=== PATIENT | female | born 1945 | race Caucasian/White ===

== ENCOUNTER 2017-10-17 00:31 | Observation (INO) | payer MEDICARE, BC ==
[~2017-10-17] VITALS: Ht 149.9 cm; Wt 47.1 kg
[2017-10-17] VITALS (7 sets, daily range): BP systolic 103–130; BP diastolic 61–78
[~2017-10-17 00:31] MED LIST: ACETAMINOPHEN-1 EAC1 PO; ASPIR 8181 MG PO; BIOTIN10000 MC1 PO; CALCIUM 600 +1 EAC1 PO; CVS COD LIVER473 ML PO; ESTRIOL100 GM MC; HYDROCODONE-AP1 EAC6 PO; IRON325 PO; LIDODERM 5%1 PATC1 TRANSDERM; MAGNESIUM250 M1 PO; MAXIMUM DAILY1 EACH PO; MEDROLDOSEPACK PO; NAPROSYN500 MG PO; NATURE-THRO113.75 MG PO; NOHOMEMEDICATIONS; OMEGA-31000 M1 PO; VICODIN ES TAB1 EACH; VITAMIN B-12500 MCG PO; ZANAFLEX4 MG PO
[2017-10-17 00:56] LABS: URINE BILIRUBIN NEGATIVE (Negative); URINE BLOOD TRACE (Negative); URINE CLARITY CLEAR; URINE COLOR STRAW; URINE GLUCOSE-RANDOM NEGATIVE (Negative); URINE KETONES NEGATIVE (Negative); URINE LEUKOCYTES-REFLEX NEGATIVE (Negative); URINE NITRITE-REFLEX NEGATIVE (Negative); URINE PROTEIN 1+ (Negative); URINE SPECIFIC GRAVITY 1.015 (1.005-1.030); URINE UROBILINOGEN 0.2 E.U./dl (0.2-1.0)
[2017-10-17 01:06] LABS: MCH 31.1 pg (26.0-34.0); MCHC 33.8 g/dL (28.0-37.0); MCV 92.1 fL (80.0-100.0); NUCLEATED RBCS 0 /100WBC; RBC 2.13 mil/uL (4.20-5.00); RDW-CV 18.8 % (10.5-14.5); WBC 6.8 thou/uL (4.0-11.0)
[2017-10-17 01:14] LABS: ANION GAP 8 mmol/L (7-16); BUN 23 mg/dL (7-18); CALCIUM 8.5 mg/dL (8.5-10.1); CHLORIDE 102 mmol/L (98-107); CO2 27 mmol/L (21-32); GLUCOSE 121 mg/dL (70-99); POTASSIUM 3.9 mmol/L (3.5-5.1); SODIUM 137 mmol/L (136-145)
[2017-10-17 01:20] LABS: ALBUMIN 3.1 g/dL (3.4-5.0); ALKALINE PHOSPHATASE 94 U/L (46-116); LIPASE 105 U/L (73-393); SGOT 14 U/L (15-37); SGPT 30 U/L (30-65); TOTAL BILIRUBIN 0.1 mg/dL (<0.1-1.0); TOTAL PROTEIN 5.9 g/dL (6.4-8.2); TROPONIN-I LEVEL <0.06 ng/mL (<0.06)
[2017-10-17 04:23] LABS: ABSOLUTE BASOPHILS 1.2 thou/uL (0.0-0.2); ABSOLUTE EOSINOPHILS 0.3 thou/uL (0.0-0.7); ABSOLUTE LYMPHOCYTES 1.7 thou/uL (0.8-5.3); ABSOLUTE NEUTROPHILS 2.6 thou/uL (1.6-8.1); ANISOCYTOSIS 2+; MACROCYTES 1+; PLATELET ESTIMATE DECREASED; POIKILOCYTOSIS 1+
[2017-10-17 04:24] LABS: HYPOCHROMASIA 1+; MICROCYTES 1+; TOXIC GRANULATION 1+
[2017-10-17 11:06] LABS: HEMATOCRIT 28.4 % (37.0-47.0)
[2017-10-17 11:15] LABS: HEMOGLOBIN 9.6 gm/dL (12.0-15.0)
[2017-10-17] MEDS ORDERED: NORCO 5-325 TA1 EACH PO (14:36)
--- NOTE | 2017-10-17 14:54 | EKG ---
[place] [address] ELECTROCARDIOGRAM REPORT Name: CHANDU MONZON Room: [address] M.R.#: [id number] Admission: 10/17/17 Attend Phys: Nicole Sarah Discharge: Date of : 49 Report #: [id number] THIS REPORT FOR: //name// 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
[2017-10-18 14:09] LABS: HEMOGLOBIN 6.6 gm/dL (12.0-15.0)
[2017-10-18 14:10] LABS: HEMATOCRIT 19.6 % (37.0-47.0); PLATELET COUNT* 42 thou/uL (150-400)
== END 2017-10-17 16:16 | disposition home or self-care (01) ==
LOC: M.ERS 00:31 → M.2W 03:06 → M.TBA-ER 03:06 → M.2W 03:21
PROVIDERS: Emergency Medicine Emergency Medical Services; Internal Medicine; ADMIT Internal Medicine
DX: D64.9 Anemia, unspecified (principal); N18.2 Chronic kidney disease, stage 2 (mild); E03.9 Hypothyroidism, unspecified; C90.00 Multiple myeloma not having achieved remission; R22.2 Localized swelling, mass and lump, trunk; M75.101 Unspecified rotator cuff tear or rupture of right shoulder, not specified as traumatic; D69.6 Thrombocytopenia, unspecified

== ENCOUNTER → 2017-10-30 | Outpatient (CLI) | payer MEDICARE, BC ==
[~2017-10-30] MED LIST changes: +DEXAMETHASONE 44 M1 PO; +NORCO 5-325 TA1 EACH PO; +OXYCODONE HCL 55 MG PO
== END ==
LOC: M.ULTRA 16:16
DX: E04.2 Nontoxic multinodular goiter (principal)

== ENCOUNTER → 2017-11-07 | Outpatient (CLI) | payer MEDICARE, BC ==
[2017-11-07 09:40] VITALS: BP 126/78; BP 131/85; BP 132/70; BP 140/76; BP 142/68
[2017-11-07 12:30] VITALS: BP 116/70; BP 121/60; BP 126/78; BP 132/70; BP 136/81
--- NOTE | 2017-11-07 17:43 | NUR ---
ARRIVED AMBULATORY AND MADE SELF COMFORTABLE IN RECLINER. BLOOD TRANSFUSION EDUCATION COMPLETED. IV WAS DIFFICULT TO PLACE. PREMEDS TAKEN WTIH OUT DIFFICULTY. LASXIS BETWEEN UNITS COMPLETED AND PT UP MULTIPLE TIMES TO BATHROOM TO VOID. 100% OF LUNCH EATEN. TRANSFUSION COMPLETED AND TOLERATED WELL. DENIES QUESTIONS OR NEEDS AT DISCHARGE.
== END ==
LOC: M.INFUS 04:58
DX: D46.9 Myelodysplastic syndrome, unspecified (principal); C90.00 Multiple myeloma not having achieved remission

== ENCOUNTER → 2017-11-15 | Outpatient (CLI) | payer MEDICARE, BC | LOC: M.RAD 10:38 | DX: I51.7 Cardiomegaly (principal); R06.02 Shortness of breath; R05 Cough ==

== ENCOUNTER 2017-11-23 15:54 | Emergency (ER) | payer MEDICARE, BC ==
[~2017-11-23] VITALS: Ht 152.4 cm; Wt 40.8 kg
[~2017-11-23 15:54] MED LIST changes: -DEXAMETHASONE 44 M1 PO; -OXYCODONE HCL 55 MG PO
[2017-11-23 15:58] VITALS: BP 126/88
[2017-11-23] MEDS ORDERED: DEXAMETHASONE 44 M1 PO (16:00)
[2017-11-23] MEDS ORDERED: OXYCODONE HCL 55 MG PO (16:01)
== END 2017-11-23 16:25 | disposition left against medical advice (07) ==
LOC: M.ERS 15:54
DX: Z53.21 Procedure and treatment not carried out due to patient leaving prior to being seen by health care provider (principal)

== ENCOUNTER → 2017-12-25 | Outpatient (CLI) | payer MEDICARE, BC ==
[~2017-12-25] MED LIST changes: +DEXAMETHASONE 44 M1 PO; +OXYCODONE HCL 55 MG PO
[2017-12-25 08:57] VITALS: BP 133/76
== END | disposition home or self-care (01) ==
LOC: M.INT 08:26
DX: Z45.2 Encounter for adjustment and management of vascular access device (principal); D69.6 Thrombocytopenia, unspecified; C90.00 Multiple myeloma not having achieved remission; Z88.2 Allergy status to sulfonamides; Z79.891 Long term (current) use of opiate analgesic; Z79.899 Other long term (current) drug therapy

== ENCOUNTER → 2018-01-16 | Outpatient (CLI) | payer MEDICARE, BC | LOC: M.ULTRA 13:01 | DX: M79.602 Pain in left arm (principal); M79.89 Other specified soft tissue disorders ==

== ENCOUNTER → 2018-01-21 | Outpatient (CLI) | payer MEDICARE, BC | LOC: M.RAD 15:01 | DX: M79.641 Pain in right hand (principal); C90.00 Multiple myeloma not having achieved remission ==